=== PATIENT | male | born 1975 | race Caucasian/White ===

== ENCOUNTER 2020-01-13 17:52 | Emergency (ER) | payer MEDICARE, MEDICAID ==
[~2020-01-13] VITALS: Ht 195.6 cm; Wt 95.3 kg
[2020-01-13] MEDS ORDERED: cloNIDine HCL 0.1 MG TAB PO ONE (18:00)
[2020-01-13 18:55] LABS: Basophils # (auto) 0.2 10 ^3/uL (0-0.2); Basophils % (auto) 2.4 % (0.0-2.0); Eosinophils # (auto) 0.2 10 ^3/uL (0-0.8); Eosinophils % (auto) 2.6 % (0.0-7.0); Hematocrit 48.3 % (41.0-53.0); Hemoglobin 16.1 g/dL (13.5-17.5); Lymphocytes # (auto) 1.9 10 ^3/uL (0.4-5.4); Lymphocytes % (auto) 27.1 % (10.0-50.0); Mean Corpuscular Hgb Conc. 33.4 g/dL (32.0-36.0); Mean Corpuscular Volume 86.8 fL (80.0-100.0); Monocytes # (auto) 0.5 10 ^3/uL (0-1.3); Monocytes % (auto) 7.5 % (0.0-12.0); Neutrophils # (auto) 4.2 10 ^3/uL (1.6-8.6); Neutrophils % (auto) 60.4 % (37.0-80.0); Nucleated Red Blood Cells % 0.1 %; Platelet Count (auto) 251 10^3/uL (140-450); Red Blood Cells 5.57 10^6/uL (4.5-5.90); Red Cell Distribution Width 13.8 % (11.8-14.3)
[2020-01-13 19:09] LABS: Albumin 4.1 g/dL (3.4-5.0); Anion Gap 5 (5-15); Blood Urea Nitrogen 16 mg/dL (7-18); Calcium 8.7 mg/dL (8.5-10.1); Carbon Dioxide 31 mmol/L (21-32); Chloride 104 mmol/L (98-107); Glucose 95 mg/dL (74-106); Potassium 3.4 mmol/L (3.5-5.1); Sodium 140 mmol/L (136-145)
[2020-01-13 19:11] LABS: Alanine Aminotransferase 23 U/L (16-61); Aspartate Aminotransferase 17 U/L (15-37); BUN/Creatinine Ratio 14.2; GFR African American 91 mL/min; GFR Non-African American 75 mL/min
[2020-01-13 19:16] LABS: Alkaline Phosphatase 56 U/L (45-117); Total Protein 7.4 g/dL (6.4-8.2)
[2020-01-13 19:27] VITALS: BP 148/106
[2020-01-15] MEDS ORDERED: fentaNYL CITRATE 100 MCG/2 ML VL ONE (17:55)
[2020-01-15] MEDS ORDERED: MIDAZOLAM HCL 1MG/1ML-2 ML VIAL ONE (17:56)
== END 2020-01-13 20:40 | disposition home or self-care (01) ==
LOC: ER 17:52 → EDBD 17:52 → ER 20:40
DX: I16.0 Hypertensive urgency (principal); Z00.8 Encounter for other general examination; F41.9 Anxiety disorder, unspecified; F32.9 Major depressive disorder, single episode, unspecified; F20.9 Schizophrenia, unspecified; Z91.14 Patient's other noncompliance with medication regimen
CPT/HCPCS: 36415; 71045; 80053; 84484; 85025; 93005